=== PATIENT | male | born 1960 | race Hispanic/Latino ===

== ENCOUNTER 2017-06-09 09:16 | Emergency (ER) | payer MEDICARE ==
[2017-06-09 09:17] VITALS: BMI 28.7
[2017-06-09] MEDS ORDERED: DiphenhydrAMINE 50 mg/ml Inj IVP STA (09:30)
[2017-06-09] MEDS ORDERED: Famotidine 20mg/50ml 20 MG/50 ML BAG IVPB STA (09:30)
[2017-06-09] MEDS ORDERED: Sodium Chloride 0.9% 1,000 ML IV STA (09:31)
--- NOTE | 2017-06-09 09:34 | ED PDOC ---
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 Patient stated he took 1 Zyrtec before onset of symptoms. He denies shortness of breath, wheezing , chest pain, abdominal pain, recent travel, leg swelling, dizziness or abnormal gait Time/Duration: Prior to Arrival Context: Home Past Medical History - Provider Review Nursing Documentation Reviewed: Yes - Infectious Disease Hx of Infectious Diseases: None - Tetanus Immunization Tetanus Immunization: Unknown - Cardiac Hx Cardiac Disorders: Yes Hx Hypertension: Yes - Pulmonary Hx Respiratory Disorders: No - Neurological Hx Neurological Disorder: No - HEENT Hx HEENT Disorder: No - Renal Hx Renal Disorder: No - Endocrine/Metabolic Hx Endocrine Disorders: No - Hematological/Oncological Hx Blood Disorders: No - Integumentary Hx Dermatological Disorder: No - Musculoskeletal/Rheumatological Hx Musculoskeletal Disorders: Yes Hx Back Pain: Yes (sciatica) Hx Fractures: Yes - Gastrointestinal Hx Gastrointestinal Disorders: No - Genitourinary/Gynecological Hx Genitourinary Disorders: No - Psychiatric Hx Psychophysiologic Disorder: No Hx Substance Use: Yes - Surgical History Hx Orthopedic Surgery: Yes (left shoulder x13, left knee x4, right wrist x2, right knee x2) Hx Tonsillectomy: Yes - Anesthesia Hx Anesthesia: Yes Hx Anesthesia Reactions: No Hx Malignant Hyperthermia: No - Suicidal Assessment Feels Threatened In Home Enviroment: No Family/Social History - Physician Review Nursing Documentation Reviewed: Yes Family/Social History: Other Smoking Status: Former Smoker Hx Alcohol Use: Yes (beer) Hx Substance Use: Yes Substance used: marijuana Hx Substance Use Treatment: No Allergies/Home Meds Allergies/Adverse Reactions: Allergies apple Allergy (Verified 06/09/17 09:28) SHORTNESS OF BREATH Penicillins Allergy (Verified 06/09/17 09:28) RASH Review of Systems - Review of Systems Constitutional: Normal. absent: Fatigue, Weight Change, Fevers Eyes: Normal ENT: Other (throat is closing) Respiratory: Normal. absent: SOB, Cough Cardiovascular: Normal Gastrointestinal: Normal Genitourinary Male: Normal Musculoskeletal: Normal Skin: Rash Neurological: Normal Endocrine: Normal Hemo/Lymphatic: Normal Psychiatric: Normal Physical Exam Vital Signs Temp Pulse Resp BP Pulse Ox 06/09/17 12:15 98.5 F 72 20 136/82 06/09/17 11:31 98.1 F 71 20 127/78 98 06/09/17 09:49 98.7 F 72 18 127/88 100 Temperature: Afebrile Blood Pressure: Normal Pulse: Regular Respiratory Rate: Normal Appearance: Positive for: Well-Appearing, Non-Toxic, Comfortable Pain Distress: None Mental Status: Positive for: Alert and Oriented X 3 - Systems Exam Head: Present: Atraumatic, Normocephalic Pupils: Present: PERRL Extroacular Muscles: Present: EOMI Conjunctiva: Present: Normal Mouth: Present: Moist Mucous Membranes Pharnyx: Present: Soft Palate/Uvular Edema. No: ERYTHEMA, EXUDATE, TONSILS ENLARGED, Peritonsilar Swelling, Uvular Deviation, Muffled/Hoarse Voice, Strider Neck: Present: Normal Range of Motion Respiratory/Chest: Present: Clear to Auscultation, Good Air Exchange. No: Respiratory Distress, Accessory Muscle Use, Wheezes, Decreased Breath Sounds, Rales, Retracting, Rhonchi, Tachypneic, Tender to Palpation Cardiovascular: Present: Regular Rate and Rhythm, Normal S1, S2. No: Murmurs Abdomen: Present: Normal Bowel Sounds. No: Tenderness, Distention, Peritoneal Signs Back: Present: Normal Inspection Upper Extremity: Present: Normal Inspection. No: Cyanosis, Edema Lower Extremity: Present: Normal Inspection. No: Edema Neurological: Present: GCS=15, CN II-XII Intact, Speech Normal Skin: Present: Warm, Dry, Normal Color. No: Rashes Psychiatric: Present: Alert, Oriented x 3, Normal Insight, Normal Concentration Medical Decision Making ED Course and Treatment: 06/09/17 12:00 Patient came complaining of allergic reaction feeling his throat was closing. He denies shortness of breath or wheezing, or stridor. Physical exam demonstrate mild pharyngeal edema. Lungs sounds clear bilaterally, no rhonchi no wheezing or stridor. Patient was treated with Solu-Medrol 125 mg IV push, 20 mg Pepcid IV and Benadryl IV. I reviewed the risk of using SoluMedrol or Prednisone which could cause AVN, osteoporosis, DM, glaucoma, renal failure, liver failure. He is aware that he could stop using Prednisone at any time symptoms resolve. Patient remain in the ED for 2 1/2 hours. Patient states he is feeling well this has been able to tolerate by mouth fluids and food. Patient Wishes to be discharged home Posterior pharyngeal and uvula appears patent Re-evaluation Time: 12:03 Reassessment Condition: Re-examined, Improved - Medication Orders Current Medication Orders: Discontinued Medications Diphenhydramine HCl (Benadryl) 50 mg IVP STAT STA Stop: 06/09/17 09:31 Last Admin: 06/09/17 10:19 Dose: 50 mg IVP Administration Document 06/09/17 10:19 MB (Rec: 06/09/17 10:19 [id number] Charges for Administration # of IVP Administrations 1 Famotidine (Pepcid 20mg/50ml Premix) 20 mg in 50 mls @ 100 mls/hr IVPB STAT STA Stop: 06/09/17 09:59 Last Admin: 06/09/17 10:15 Dose: 100 mls/hr eMAR Start Stop Document 06/09/17 10:15 MB (Rec: 06/09/17 10:19 [id number] Intravenous Solution Start Date 06/09/17 Start Time 10:19 End Date 06/09/17 End time 10:35 Total Infusion Time 16 Sodium Chloride (Sodium Chloride 0.9%) 1,000 mls @ 999 mls/hr IV .Q1H1M STA Stop: 06/09/17 10:31 Last Admin: 06/09/17 10:19 Dose: 999 mls/hr eMAR Start Stop Document 06/09/17 10:19 MB (Rec: 06/09/17 10:20 [id number] Intravenous Solution Start Date 06/09/17 Start Time 10:20 End Date 06/09/17 End time 11:20 Total Infusion Time 60 Methylprednisolone (Solu-Medrol) 125 mg IVP STAT STA Stop: 06/09/17 09:31 Last Admin: 06/09/17 10:19 Dose: 125 mg IVP Administration Document 06/09/17 10:19 MB (Rec: 06/09/17 10:19 [id number] Charges for Administration # of IVP Administrations 1 Disposition/Present on Arrival - Present on Arrival Any Indicators Present on Arrival: No History of DVT/PE: No History of Uncontrolled Diabetes: No Urinary Catheter: No History of Decub. Ulcer: No History Surgical Site Infection Following: None - Disposition Have Diagnosis and Disposition been Completed?: Yes Diagnosis: Allergic reaction Disposition: HOME/ ROUTINE Disposition Time: 12:03 Patient Plan: Discharge Condition: GOOD Discharge Instructions (ExitCare): General Allergic Reaction (ED) Additional Instructions: Private doctor for follow-up visit in 1-2 days. Don't take Zyrtec. Take Medication as instructed with food. Return to emergency if symptoms return or worsen Prescriptions: DiphenhydrAMINE [Benadryl] 25 mg PO Q6H PRN #30 cap PRN Reason: Allergy Symptoms Epinephrine HCl [Epipen Auto-Injector] 0.3 mg IM ONCE PRN #1 packet PRN Reason: Anaphylaxis Famotidine [Pepcid] 40 mg PO DAILY #10 tablet Prednisone [Deltasone] 60 mg PO DAILY #12 tablet Referrals: Mariano Paul MD [Family Provider] - Follow up with primary Forms: [employer] (Ecuadorean)
[2017-06-09 11:33] VITALS: RESP 20; O2SAT 98
[2017-06-09 12:25] VITALS: BP 136/82; PULSE 72; TEMP 98.5
== END 2017-06-09 12:29 | disposition home or self-care (01) ==
LOC: ED 09:16
DX: T78.49XA Other allergy, initial encounter (principal); X58.XXXA Exposure to other specified factors, initial encounter
CPT/HCPCS: 96361; 96365; 96375; 99285; J1200; J2930; J7040

== ENCOUNTER 2018-05-10 10:03 | Emergency (ER) | payer MEDICARE ==
[2018-05-10 10:05] VITALS: BMI 28.7
--- NOTE | 2018-05-10 11:36 | ED PDOC ---
Arrival/HPI - General Historian: Patient - History of Present Illness Time/Duration: < week Symptom Onset: Sudden Symptom Course: Unchanged Severity Level: Mild Context: Home <Michael Sapp - Last Filed: 05/10/18 14:23> <Rg Fishman - Last Filed: 05/10/18 22:35> - General Chief Complaint: GI Problem Time Seen by Provider: 05/10/18 10:58 - History of Present Illness Narrative History of Present Illness (Text): 05/10/18 11:33 57 year old male, past medical history of hypertension and GERD, presents to the emergency department with 4 days of diarrhea. Patient states no inciting event. He is tolerating a diet with no vomiting however he immediately experiences diarrhea with bright red blood in stool. Denies black, tarry stools. Patient admits to occasional abdominal pain and nausea as well. States in 1 year he has lost over 30 pounds however he does eat healthy and exercise regularly. Last colonoscopy was 5 years ago he had polyps removed and told to return in 5-7 years. Denies fever, chills, headache, dizziness, shortness of breath, chest pain, palpitations, hearing or vision changes, or urinary symptoms. 05/10/18 11:36 (Michael Sapp) Past Medical History - Provider Review Nursing Documentation Reviewed: Yes - Infectious Disease Hx of Infectious Diseases: None - Tetanus Immunization Tetanus Immunization: Unknown - Cardiac Hx Cardiac Disorders: Yes Hx Hypertension: Yes - Pulmonary Hx Respiratory Disorders: No - Neurological Hx Neurological Disorder: No - HEENT Hx HEENT Disorder: No - Renal Hx Renal Disorder: No - Endocrine/Metabolic Hx Endocrine Disorders: No - Hematological/Oncological Hx Blood Disorders: No - Integumentary Hx Dermatological Disorder: No - Musculoskeletal/Rheumatological Hx Musculoskeletal Disorders: Yes Hx Back Pain: Yes (sciatica) Hx Fractures: Yes - Gastrointestinal Hx Gastrointestinal Disorders: Yes Hx Gastroesophageal Reflux: Yes - Genitourinary/Gynecological Hx Genitourinary Disorders: No - Psychiatric Hx Psychophysiologic Disorder: No Hx Substance Use: Yes - Surgical History Hx Orthopedic Surgery: Yes Hx Tonsillectomy: Yes - Anesthesia Hx Anesthesia: Yes Hx Anesthesia Reactions: No Hx Malignant Hyperthermia: No - Suicidal Assessment Feels Threatened In Home Enviroment: No <Michael Sapp - Last Filed: 05/10/18 14:23> Family/Social History - Physician Review Nursing Documentation Reviewed: Yes Family/Social History: Neoplasm/Cancer Smoking Status: Former Smoker Hx Alcohol Use: Yes (beer) Hx Substance Use: Yes Substance used: marijuana Hx Substance Use Treatment: No <Michael Sapp - Last Filed: 05/10/18 14:23> Allergies/Home Meds <Michael Sapp - Last Filed: 05/10/18 14:23> <BosariadneRg - Last Filed: 05/10/18 22:35> Allergies/Adverse Reactions: Allergies Penicillins Allergy (Verified 05/10/18 10:14) RASH Home Medications: Home Meds Medication Instructions Recorded Confirmed Omeprazole Magnesium [Prilosec Otc] 20 mg PO DAILY 05/10/18 05/10/18 Review of Systems - Physician Review All systems were reviewed & negative as marked: Yes - Review of Systems Constitutional: absent: Fevers Eyes: absent: Vision Changes ENT: absent: Hearing Changes Respiratory: Cough. absent: SOB Cardiovascular: absent: Chest Pain, Palpitations Gastrointestinal: Abdominal Pain, Stool Changes, Diarrhea, Nausea. absent: Vomiting, Appetite Changes, Hematemesis, Anorexia Genitourinary Male: absent: Dysuria, Hematuria Musculoskeletal: Back Pain. absent: Arthralgias Skin: absent: Rash, Skin Lesions Neurological: absent: Headache, Dizziness Endocrine: absent: Diaphoresis <Michael Sapp - Last Filed: 05/10/18 14:23> Physical Exam Vital Signs Reviewed: Yes Temperature: Afebrile Blood Pressure: Hypertensive Pulse: Tachycardic Respiratory Rate: Normal Appearance: Positive for: Well-Appearing, Non-Toxic, Comfortable Pain Distress: None Mental Status: Positive for: Alert and Oriented X 3 - Systems Exam Head: Present: Atraumatic, Normocephalic Pupils: Present: PERRL Extroacular Muscles: Present: EOMI Conjunctiva: Present: Normal Mouth: Present: Dry Pharnyx: Present: Normal Nose (External): Present: Atraumatic Nose (Internal): Present: Normal Inspection Respiratory/Chest: Present: Clear to Auscultation, Good Air Exchange. No: Respiratory Distress, Accessory Muscle Use Cardiovascular: Present: Regular Rate and Rhythm, Normal S1, S2. No: Murmurs Abdomen: No: Tenderness, Distention, Peritoneal Signs, Rebound, Guarding, Hernias Rectal: Present: Occult Blood, Rectal Tenderness, Hemorrhoids. No: Gross Blood Upper Extremity: Present: Normal Inspection, NORMAL PULSES. No: Cyanosis, Edema Lower Extremity: Present: Normal Inspection, NORMAL PULSES. No: Edema Skin: Present: Warm, Dry, Normal Color. No: Rashes Psychiatric: Present: Alert, Oriented x 3, Normal Insight, Normal Concentration <Michael Sapp - Last Filed: 05/10/18 14:23> Vital Signs Temp Pulse Resp BP Pulse Ox 05/10/18 14:44 98 F 79 18 152/96 H 96 05/10/18 14:40 98 F 79 18 152/96 H 96 05/10/18 11:00 98.2 F 59 L 16 145/97 H 96 05/10/18 10:15 98.5 F 101 H 16 157/92 H 97 Medical Decision Making <Michael Sapp - Last Filed: 05/10/18 14:23> - Lab Interpretations I have reviewed the lab results: Yes - RAD Interpretation Mailing Clerk: Radiologist <Rg Fishman - Last Filed: 05/10/18 22:35> ED Course and Treatment: 05/10/18 11:39 57M presents to ED with diarrhea and blood in stool. CBC CMP CTAP IVF Zofran Reassess 05/10/18 14:13 Impression: no acute intra-abdominal findings. Hyperdense cyst in upper pole of right kidney. 05/10/18 14:23 Spoke with patient regarding CT scan results. He already had US of kidneys done last week and is following up with urologist Dr. Harry. 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 Advised to also follow up with PMD within 1 week. Will provide patient referral for general surgeon regarding hemorrhoids. Recommended soft bland diet for the next few days. If symptoms worsen, patient should return to the ED. Patient verbalized understanding and agreement of treatment plan. Case reviewed and discussed with attending provider. (Michael Sapp) 05/10/18 12:02 Patient Seen With Resident: In agreement with resident note. Patient was seen and evaluated with resident, came up with plan and treatment together. Impression: Patient is a 57 year old male who presents to the emergency department complaining of diarrhea and blood in stool. (Rg Fishman) - Lab Interpretations Lab Results: 05/10/18 11:45 05/10/18 11:45 Lab Results 05/10/18 11:45: Sodium 139, Potassium 4.1, Chloride 101, Carbon Dioxide 27, Anion Gap 15, BUN 16, Creatinine 0.7 L, Est GFR ( Amer) > 60, Est GFR ( Non-Af Amer) > 60, Random Glucose 97, Calcium 10.1, Total Bilirubin 0.8, AST 46 , ALT 57 H, Alkaline Phosphatase 94, Total Protein 8.1, Albumin 4.5, Globulin 3.6, Albumin/Globulin Ratio 1.3 05/10/18 11:45: WBC 9.8, RBC 4.46, Hgb 12.1 L, Hct 37.0 L, MCV 83.0, MCH 27.1, MCHC 32.7, RDW 14.2, Plt Count 266, MPV 9.2, Gran % 72.2 H, Lymph % (Auto) 14.0 L, [place] % (Auto) 11.0 H, Eos % (Auto) 2.4, Baso % (Auto) 0.4, Gran # 7.07 H, Lymph # (Auto) 1.4, [place] # (Auto) 1.1 H, Eos # (Auto) 0.2, Baso # (Auto) 0.04 - RAD Interpretation Narrative RAD Interpretations (Text): 05/10/[address] with Contrast: Dictator : Rancho Zamora MD IMPRESSION: No acute intra-abdominal findings. Slightly hyper dense cyst in the upper pole of the right kidney. (Rg Fishman) Radiology Orders: 05/10/18 12:19 ABDOMEN & PELVIS [ABD & PELVIS IV CONTRAST ONLY] [CT] Stat - Medication Orders Current Medication Orders: Discontinued Medications Sodium Chloride (Sodium Chloride 0.9%) 1,000 mls @ 999 mls/hr IV .Q1H1M STA Stop: 05/10/18 13:45 Last Admin: 05/10/18 12:56 Dose: 999 mls/hr eMAR Start Stop Document 05/10/18 12:56 HAT LINER (Rec: 05/10/18 12:56 [facility]AT LINER [id number]) Intravenous Solution Start Date 05/10/18 Start Time 12:56 Ondansetron HCl (Zofran Inj) 4 mg IVP STAT STA Stop: 05/10/18 12:48 Last Admin: 05/10/18 12:56 Dose: 4 mg IVP Administration Document 05/10/18 12:56 HAT LINER (Rec: 05/10/18 12:56 [facility] LINER [id number]) Charges for Administration # of IVP Administrations 1 <Michael Sapp - Last Filed: 05/10/18 14:23> - PA / COMPUTERIZED MILL RECORDER / Resident Statement MD/DO has reviewed & agrees with the documentation as recorded. - Scribe Statement The provider has reviewed the documentation as recorded by the Scribe <Rg Fishman - Last Filed: 05/10/18 22:35> - Scribe Statement Darshan Ryjaren Provider Scribe Attestation: All medical record entries made by the Scribe were at my direction and personally dictated by me. I have reviewed the chart and agree that the record accurately reflects my personal performance of the history, physical exam, medical decision making, and the department course for this patient. I have also personally directed, reviewed, and agree with the discharge instructions and disposition. (gR Fishman) Disposition/Present on Arrival - Present on Arrival Any Indicators Present on Arrival: No History of DVT/PE: No History of Uncontrolled Diabetes: No Urinary Catheter: No History of Decub. Ulcer: No History Surgical Site Infection Following: None - Disposition Have Diagnosis and Disposition been Completed?: Yes Disposition Time: 14:27 Patient Plan: Discharge <Michael Sapp - Last Filed: 05/10/18 14:23> <Rg Fishman - Last Filed: 05/10/18 22:35> - Disposition Diagnosis: Gastritis, Internal and external hemorrhoids without complication Disposition: HOME/ ROUTINE Condition: GOOD Discharge Instructions (ExitCare): Hemorrhoids (DC), Gastritis (DC) Additional Instructions: Patient already had US of kidneys done last week, and is following up with urologist Dr. Harry. 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 Advised to also follow up with primary medical doctor within 1 week. Will provide patient referral for general surgeon regarding hemorrhoids. Recommended soft, bland diet for the next few days. If symptoms worsen, please return to the ED. Referrals: Vishal Casillas JD, MD [Primary Care Provider] - Follow up with primary Uriah Byrnes MD [Staff Provider] - Follow up with primary Forms: [employer] (Belarusian)
[2018-05-10 12:06] LABS: BASO # 0.04 K/mm3 (0.0-2.0); BASO % 0.4 % (0.0-3.0); EOS # 0.2 (0.0-0.7); EOS % 2.4 % (1.5-5.0); GRAN # 7.07 (1.4-6.5); GRAN % 72.2 % (50.0-68.0); HEMOGLOBIN 12.1 g/dL (14.0-18.0); LYMPH # 1.4 (1.2-3.4); MEAN CORPUSCULAR HEMOGLOBIN 27.1 pg (25.0-35.0); MEAN CORPUSCULAR HGB CONC 32.7 g/dl (31.0-37.0); MEAN PLATELET VOLUME 9.2 fl (7.0-11.0); MONO # 1.1 (0.1-0.6); RBC 4.46 10^6/uL (3.5-6.1); RED CELL DISTRIBUTION WIDTH 14.2 % (11.5-14.5); WHITE BLOOD COUNT 9.8 10^3/ul (4.5-11.0)
[2018-05-10 12:11] LABS: ALB/GLOB RATIO 1.3 (1.1-1.8); ALBUMIN 4.5 g/dL (3.0-4.8); ALT/SGPT 57 U/L (7-56); AST/SGOT 46 U/L (17-59); BLOOD UREA NITROGEN 16 mg/dL (7-21); CALCIUM 10.1 mg/dL (8.4-10.5); GFR NON-AFRICAN AMERICAN > 60
[2018-05-10 12:26] VITALS: O2SAT 96
[2018-05-10] MEDS ORDERED: Sodium Chloride 0.9% 1,000 ML IV STA (12:45)
--- NOTE | 2018-05-10 14:10 | CT ---
Date of service: 05/10/2018 PROCEDURE: CT Abdomen and Pelvis with contrast HISTORY: abdominal pain, bloody diarrhea COMPARISON: 12/03/2008 TECHNIQUE: Contrast dose: 150 cc of Omni 350 Radiation dose: Total exam DLP = 829 mGy-cm. This CT exam was performed using one or more of the following dose reduction techniques: Automated exposure control, adjustment of the mA and/or kV according to patient size, and/or use of iterative reconstruction technique. FINDINGS: LOWER THORAX: Unremarkable. LIVER: Fatty infiltration of the liver GALLBLADDER AND BILE DUCTS: Unremarkable. PANCREAS: Unremarkable. No gross lesion or ductal dilatation. SPLEEN: Unremarkable. ADRENALS: Unremarkable. No mass. KIDNEYS AND URETERS: There is a large cystic appearing lesion in the upper pole of the right kidney measuring 5 cm in diameter. This measures 38 Hounsfield units. This most likely represents proteinaceous or hemorrhagic cyst. Ultrasound correlation may be indicated VASCULATURE: Unremarkable. No aortic aneurysm. BOWEL: Unremarkable. No obstruction. No gross mural thickening. APPENDIX: Normal appendix. PERITONEUM: Unremarkable. No free fluid. No free air. LYMPH NODES: Unremarkable. No enlarged lymph nodes. BLADDER: Unremarkable. REPRODUCTIVE: Unremarkable. BONES: No acute fracture. OTHER FINDINGS: None. IMPRESSION: No acute intra-abdominal findings. Slightly hyper dense cyst in the upper pole of the right kidney.
[2018-05-10 14:42] VITALS: BP 152/96; PULSE 79; RESP 18; TEMP 98
== END 2018-05-10 14:44 | disposition home or self-care (01) ==
LOC: ED 10:03
DX: K29.70 Gastritis, unspecified, without bleeding (principal); K64.8 Other hemorrhoids; K64.4 Residual hemorrhoidal skin tags
CPT/HCPCS: 74177; 80053; 85025; 96374; 99283; J2405; J7030; Q9967